=== PATIENT | female | born 1950 | race Caucasian/White ===

== ENCOUNTER 2023-05-23 10:55 | Emergency (ER) | payer MEDICARE, BC ==
[2023-05-23] MEDS ORDERED: Ondansetron 4 MG/2 ML SDV IVPUSH ONE (11:40)
[2023-05-23] MEDS ORDERED: Sodium Chloride 0.9% 10 ML Syringe FLUSH PRN (11:40)
[2023-05-23] MEDS ORDERED: Sodium Chloride 0.9% 1,000 ML IV ONE ×2 (11:40→13:02)
[2023-05-23 12:07] LABS: BASOPHILS ABSOLUTE AUTO 0.02 K/mm3 (0.01-0.08); BASOPHILS PERCENT AUTO 0.1 % (0.1-1.2); EOSINOPHILS PERCENT AUTO 0 (0.7-5.8); HEMATOCRIT 35.8 % (34.1-44.9); IMMATURE GRAN ABSOLUTE AUTO 0.39 K/mm3 (0.00-0.10); LYMPHOCYTES ABSOLUTE AUTO 0.51 K/mm3 (1.18-3.74); LYMPHOCYTES PERCENT AUTO 2.7 % (19.3-51.7); MEAN CORPUSCULAR HEMOGLOBIN 28.8 pg (25.6-32.2); MEAN CORPUSCULAR HGB CONC 33.5 g/dl (32.2-35.5); MEAN CORPUSCULAR VOLUME 85.9 fl (79.4-94.8); MEAN PLATELET VOLUME 10.2 fl (9.4-12.3); MONOCYTES ABSOLUTE AUTO 1.41 K/mm3 (0.24-0.36); MONOCYTES PERCENT AUTO 7.4 % (4.7-12.5); NEUTROPHILS PERCENT AUTO 87.8 % (34.0-71.1); PLATELET COUNT,PLT 80 K/mm3 (182-369); RED BLOOD CELL COUNT 4.17 M/mm3 (3.98-5.22); WHITE BLOOD CELL COUNT,WBC 19.03 K/mm3 (3.98-10.04)
[2023-05-23 12:27] LABS: A/G RATIO 0.5 (1-2); ALBUMIN 2.1 g/dl (3.4-5.0); BILIRUBIN TOTAL 1.2 mg/dL (0.2-1.0); BUN/CREATININE RATIO 25.3 (14-18); CALCIUM 8.7 mg/dL (8.5-10.1); CREATININE 1.5 mg/dL (0.55-1.02); EST CRCL DRUG DOSING (CG) 28.41 mL/min; MAGNESIUM 1.9 mg/dL (1.8-2.4); PROTEIN TOTAL,TP 6.1 g/dl (6.4-8.2)
[2023-05-23 12:37] LABS: C-REACTIVE PROTEIN 24.8 mg/dL (<1.0)
[2023-05-23 12:44] LABS: APPEARANCE,URINE CLEAR (Clear); BILIRUBIN,URINE 1+ (Negative); COLOR,URINE YELLOW (Yellow); GLUCOSE,URINE TRACE (Negative); KETONES,URINE 2+ (Negative); LEUKOCYTE ESTERASE,URINE TRACE (Negative); NITRITE,URINE NEGATIVE (Negative); OCCULT BLOOD,URINE TRACE-LYSED (Negative); PH,URINE 5.5 (5.0-8.0); PROTEIN,URINE 2+ (Negative)
[2023-05-23 12:59] LABS: SLIDE REVIEW ABNORMAL SMEAR
[2023-05-23] MEDS ORDERED: Aluminum Hydroxide/Magnesium Hydroxide/Simethicone Susp 30 ML Cup PO ONE (13:02)
[2023-05-23] MEDS ORDERED: Famotidine 20 MG/2 ML SDV IVPUSH ONE (13:02)
[2023-05-23 13:08] LABS: BACTERIA,URINE MODERATE /hpf (FEW); FINE GRANULAR CASTS,URINE 0-5 /lpf (0-5); HYALINE CASTS,URINE 0-5 /lpf (0-5); RBC,URINE 0-5 /hpf (0-5); SQUAMOUS EPITHELIAL CELLS,UR 0-5 /hpf (0-5); WBC,URINE 0-5 /hpf (0-5)
[2023-05-23 13:08] LABS: INR 1.12; PROTHROMBIN TIME 11.9 SECONDS (9.7-12.0)
[2023-05-23 13:09] LABS: MUCUS,URINE RARE /hpf (FEW)
[2023-05-23] MEDS ORDERED: Aspirin 81 MG Tab.Chew PO ONE (13:17)
[2023-05-23] MEDS ORDERED: Heparin Sodium 5,000 Units/ML Vial IVPUSH ONE (13:17)
[2023-05-23] MEDS ORDERED: Heparin Sodium/D5W 25,000 UNITS/500 ML BAG IV SCH (13:30)
[2023-05-23] MEDS ORDERED: fentaNYL 100 MCG/2 ML SDV IVPUSH ONE (15:28)
== END 2023-05-23 15:49 ==
LOC: JD.ED 10:55
DX: N13.2 Hydronephrosis with renal and ureteral calculous obstruction (principal); K29.80 Duodenitis without bleeding; I21.4 Non-ST elevation (NSTEMI) myocardial infarction; E11.9 Type 2 diabetes mellitus without complications; E03.9 Hypothyroidism, unspecified; Z88.0 Allergy status to penicillin; Z91.041 Radiographic dye allergy status
CPT/HCPCS: 36415; 74176; 80053; 81001; 83690; 83735; 84484; 85025; 85610; 85730; 86140; 87086; 93005; 96361; 96365; 96366; 96375; 96376; 99285; A9270; J1644; J2405; J3010; J3490; J7030; 93010